=== PATIENT | female | born 1985 | race Caucasian/White ===

== ENCOUNTER 2020-02-15 00:06 | Emergency (ER) | payer BC ==
[~2020-02-15] VITALS: Ht 154.9 cm; Wt 49.8 kg
[2020-02-15] MEDS ORDERED: LACTATED RINGERS 1,000 ML IV ONE ×2 (01:22→03:28)
--- NOTE | 2020-02-15 01:44 | ED Abdominal Pain ---
General Chief Complaint: Abdominal/GI Problems Stated Complaint: FEVER Source of Information: Patient History of Present Illness Date Seen by Provider: Feb 15, 2020 Time Seen by Provider: 01:15 Initial Comments PT ARRIVES VIA POV FROM HOME IN [place] C/O SEVERE SHARP, CONSTANT LOWER ABDOMINAL PAIN X 1 WEEK STATES SHE HAS CROHN'S DISEASE AND ULCERATIVE COLITIS--STATES HER LAST BAD FLARE WAS ALMOST A YEAR AGO. BUT HAS "LITTLE ONES" PERIODICALLY. LAST COLONOSCOPY WAS "EARLIER THIS YEAR" . TAKES 6-MP, AMITIZA AND OMEPRAZOLE. STATES THIS IS EXACTLY THE SAME HER NORMAL C/O NAUSEA, NO VOMITING--ONGOING PROBLEM C/O DIARRHEA X 4-5 TODAY. NO BLACK/BLOODY/TARRY STOOLS. STATES SHE IS NORMALLY VERY CONSTIPATED AND HAS BM EVERY COUPLE OF DAYS HAD TEMP OF 99.9 TODAY NO URINARY SYMPTOMS TOOK 1 GRAM OF TYLENOL SEVERAL HOURS AGO. LMP--02/12/20 TO NOW. NORMAL. NO CONTROL. HAS NOT SOUGHT CARE UNTIL [facility] STATES SHE WORKS AT [employer] AND HAD A NEGATIVE COVID-19 TEST 2 WEEKS AGO- -SOMEONE IN HER AREA TESTED + WAS REASON SHE WAS TESTED. HAS NOT HAD ANY COVID- 19 SYMPTOMS. PCP: DR. YVETTE STACK IN [place] GI: DR. PLAZA IN [place] Allergies and Home Medications Allergies Coded Allergies: No Known Drug Allergies (Unverified , 02/15/20) Review of Systems Review of Systems Constitutional: see HPI, fever Respiratory: No Symptoms Reported; Denies Cough Cardiovascular: No Symptoms Reported Gastrointestinal: See HPI, Abdominal Pain, Diarrhea, Nausea; Denies Rectal Bleeding Genitourinary: No Symptoms Reported Musculoskeletal: no symptoms reported Skin: no symptoms reported Psychiatric/Neurological: No Symptoms Reported Endocrine: No Symptoms Reported Hematologic/Lymphatic: No Symptoms Reported Past [id number] Hx Past Med/Social Hx: Reviewed and Corrections made Patient Social History Alcohol Use: Denies Use Recreational Drug Use: No Smoking Status: Current Everyday Smoker (1-2 PPD) Recent Foreign Travel: No Contact w/Someone Who Travel: No Past Medical History Surgeries: Yes (COLONOSCOPIES; FX/ORIF RIGHT ARM WITH PLATE; WISDOM TEETH REMOVED) Orthopedic Respiratory: No Cardiac: No Neurological: No : No Reproductive Disorders: No Genitourinary: No Gastrointestinal: Yes (CROHN'S DISEASE AND ULCERATIVE COLITIS) Colitis, Crohns Disease, Chronic Constipation Musculoskeletal: Yes (RIGHT ARM FX/ORIF WITH PLATE) Fractures Endocrine: No HEENT: No (WISDOM TEETH REMOVED) Cancer: No Psychosocial: No Integumentary: No Blood Disorders: No Physical Exam Vital Signs Vital Signs - First Documented 02/15/20 01:07 Temp 36.9 Pulse 83 Resp 20 B/P (MAP) 112/60 (77) O2 Delivery Room Air Capillary Refill : Height/Weight/BMI Height: '" Weight: lbs. oz. 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, no motor/sensory deficits, alert, oriented x 3 Skin: normal color, warm/dry, tattoos/piercings (TATTOOS) Progress/Results/Core Measures Results/Orders Lab Results Laboratory Tests Test 02/15/20 01:15 02/15/20 01:30 Range/Units Urine Color YELLOW Urine Clarity CLEAR Urine pH 6.0 5-9 Urine Specific [place] <=1.005 1.016-1.022 Urine Protein NEGATIVE NEGATIVE Urine Glucose (UA) NEGATIVE NEGATIVE Urine Ketones NEGATIVE NEGATIVE Urine Nitrite NEGATIVE NEGATIVE Urine Bilirubin NEGATIVE NEGATIVE Urine Urobilinogen 0.2 < = 1.0 MG/DL Urine Leukocyte Esterase NEGATIVE NEGATIVE Urine RBC (Auto) NEGATIVE NEGATIVE Urine RBC NONE /HPF Urine WBC NONE /HPF Urine Squamous Epithelial Cells 2-5 /HPF Urine Crystals NONE /LPF Urine Bacteria NEGATIVE /HPF Urine Casts NONE /LPF Urine Mucus SMALL H /LPF Urine Culture Indicated NO Urine Opiates Screen NEGATIVE NEGATIVE Urine Oxycodone Screen NEGATIVE NEGATIVE Urine Methadone Screen NEGATIVE NEGATIVE Urine Propoxyphene Screen NEGATIVE NEGATIVE Urine Barbiturates Screen NEGATIVE NEGATIVE Ur Tricyclic Antidepressants Screen NEGATIVE NEGATIVE Urine Phencyclidine Screen NEGATIVE NEGATIVE Urine Amphetamines Screen NEGATIVE NEGATIVE Urine Methamphetamines Screen NEGATIVE NEGATIVE Urine Benzodiazepines Screen NEGATIVE NEGATIVE Urine Cocaine Screen NEGATIVE NEGATIVE Urine Cannabinoids Screen NEGATIVE NEGATIVE White Blood Count 6.4 4.3-11.0 10^3/uL Red Blood Count 4.17 3.80-5.11 10^6/uL Hemoglobin 13.2 11.5-16.0 g/dL Hematocrit 40 35-52 % Mean Corpuscular Volume 97 80-99 fL Mean Corpuscular Hemoglobin 32 25-34 pg Mean Corpuscular Hemoglobin Concent 33 32-36 g/dL Red Cell Distribution Width 14.5 10.0-14.5 % Platelet Count 396 130-400 10^3/uL Mean Platelet Volume 9.6 9.0-12.2 fL Immature Granulocyte % (Auto) 0 % Neutrophils (%) (Auto) 55 42-75 % Lymphocytes (%) (Auto) 36 12-44 % Monocytes (%) (Auto) 5 0-12 % Eosinophils (%) (Auto) 3 0-10 % Basophils (%) (Auto) 0 0-10 % Neutrophils # (Auto) 3.5 1.8-7.8 10^3/uL Lymphocytes # (Auto) 2.3 1.0-4.0 10^3/uL Monocytes # (Auto) 0.3 0.0-1.0 10^3/uL Eosinophils # (Auto) 0.2 0.0-0.3 10^3/uL Basophils # (Auto) 0.0 0.0-0.1 10^3/uL Immature Granulocyte # (Auto) 0.0 0.0-0.1 10^3/uL Erythrocyte Sedimentation Rate 4 0-20 MM/HR Sodium Level 139 135-145 MMOL/L Potassium Level 3.6 3.6-5.0 MMOL/L Chloride Level 104 98-107 MMOL/L Carbon Dioxide Level 22 21-32 MMOL/L Anion Gap 13 5-14 MMOL/L Blood Urea Nitrogen 9 7-18 MG/DL Creatinine 0.74 0.60-1.30 MG/DL Estimat Glomerular Filtration Rate > 60 BUN/Creatinine Ratio 12 Glucose Level 94 70-105 MG/DL Calcium Level 9.5 8.5-10.1 MG/DL Corrected Calcium 8.5-10.1 MG/DL Magnesium Level 2.3 1.6-2.4 MG/DL Total Bilirubin 0.3 0.1-1.0 MG/DL Aspartate Amino Transf (AST/SGOT) 12 5-34 U/L Alanine Aminotransferase (ALT/SGPT) 21 0-55 U/L Alkaline Phosphatase 44 40-136 U/L C-Reactive Protein High Sensitivity 0.02 0.00-0.50 MG/DL Total Protein 8.2 6.4-8.2 GM/DL Albumin 5.0 H 3.2-4.5 GM/DL Amylase Level 49 25-125 U/L Lipase 29 8-78 U/L My Orders Orders - ROLO WALLS DO Ed Iv/Invasive Line Start (02/15/20 01:17) Urine Bedside (02/15/20:17) Amylase (02/15/20:17) Cbc With Automated Diff (02/15/20:) Comprehensive Metabolic Panel (02/15/20:) Hs C Reactive Protein (02/15/20:17) Lipase (02/15/20:17) Magnesium (02/15/20:17) Ua Culture If Indicated (02/15/20:) Erythrocyte Sedimentation Rate (02/15/20:17) Ed Iv/Invasive Line Start (02/15/20 01:22) Lactated Ringers (Lr 1000 Ml Iv Solution (02/15/20 01:22) Drug Screen Stat (Urine) (02/15/20 01:22) Ct Abdomen/Pelvis W (02/15/20 03:26) Abdomen, Flat & Upright/Decub (02/15/20 03:26) Ketorolac Injection (Toradol Injection) (02/15/20 03:30) Ed Iv/Invasive Line Start (02/15/20 03:28) Lactated Ringers (Lr 1000 Ml Iv Solution (02/15/20 03:28) Medications Given in ED Current Medications Medications Dose Ordered Sig/Tremaine Route Start Time Stop Time Status Last Admin Dose Admin Ketorolac Tromethamine 30 mg ONCE ONCE IVP 02/15/20 03:30 02/15/20 03:31 DC 02/15/20 03:35 30 MG Lactated Ringer's 1,000 ml @ 0 mls/hr Q0M ONCE IV 02/15/20 01:22 02/15/20 01:23 DC 02/15/20 01:34 999 MLS/HR Lactated Ringer's 1,000 ml @ 0 mls/hr Q0M ONCE IV 02/15/20 03:28 02/15/20 03:29 DC 02/15/20 03:35 999 MLS/HR Vital Signs/I&O 02/15/20 01:07 Temp 36.9 Pulse 83 Resp 20 B/P (MAP) 112/60 (77) O2 Delivery Room Air Departure Impression Primary Impression: Pelvic pain Additional Impression: PELVIC VASCULAR CONGESTION Disposition: HOME, SELF-CARE Condition: Improved Departure-Patient Inst. Patient Instructions: Acute Pelvic Pain (DC) Add. Discharge Instructions: HEATING PAD TO ABDOMEN AT 20 MINUTE INTERVALS, NEEDED FOR PAIN FOLLOW UP WITH YOUR BOTTOM SANDER IN [place] NEXT WEEK FOR FURTHER CARE All discharge instructions reviewed with patient and/or family. Voiced understanding. Scripts Ketorolac Tromethamine (Ketorolac Tromethamine) 10 Mg Tablet 10 MG PO Q6H for Pain, #15 TAB Prov: ROLO WALLS DO 02/15/20 ROLO WALLS DO Feb 15, 2020 01:44
[2020-02-15 01:45] LABS: BILIRUBIN,URINE NEGATIVE (NEGATIVE); CLARITY,URINE CLEAR; COLOR,URINE YELLOW; GLUCOSE, URINE (UA) NEGATIVE (NEGATIVE); KETONES,URINE NEGATIVE (NEGATIVE); LEUKOCYTE ESTERASE ,URINE NEGATIVE (NEGATIVE); NITRITE,URINE NEGATIVE (NEGATIVE); PROTEIN,URINE NEGATIVE (NEGATIVE)
[2020-02-15 02:01] LABS: BASOPHILS % (AUTO) 0 % (0-10); EOSINOPHILS # (AUTO) 0.2 10^3/uL (0.0-0.3); EOSINOPHILS % (AUTO) 3 % (0-10); HEMATOCRIT 40 % (35-52); HEMOGLOBIN 13.2 g/dL (11.5-16.0); LYMPHOCYTES # (AUTO) 2.3 10^3/uL (1.0-4.0); LYMPHOCYTES % (AUTO) 36 % (12-44); MEAN CORPUSCULAR HEMOGLOBIN 32 pg (25-34); MEAN CORPUSCULAR HGB CONC 33 g/dL (32-36); MEAN CORPUSCULAR VOLUME 97 fL (80-99); MEAN PLATELET VOLUME 9.6 fL (9.0-12.2); MONOCYTES # (AUTO) 0.3 10^3/uL (0.0-1.0); MONOCYTES % (AUTO) 5 % (0-12); NEUTROPHILS # (AUTO) 3.5 10^3/uL (1.8-7.8); NEUTROPHILS % (AUTO) 55 % (42-75); PLATELET COUNT 396 10^3/uL (130-400); WHITE BLOOD COUNT 6.4 10^3/uL (4.3-11.0)
[2020-02-15 02:04] LABS: BACTERIA,URINE NEGATIVE /HPF
[2020-02-15 02:08] LABS: CHLORIDE 104 MMOL/L (98-107); POTASSIUM 3.6 MMOL/L (3.6-5.0); SODIUM 139 MMOL/L (135-145)
[2020-02-15 02:10] LABS: AMYLASE 49 U/L (25-125); CALCIUM 9.5 MG/DL (8.5-10.1)
[2020-02-15 02:11] LABS: GLUCOSE 94 MG/DL (70-105); TOTAL PROTEIN 8.2 GM/DL (6.4-8.2)
[2020-02-15 02:12] LABS: CARBON DIOXIDE 22 MMOL/L (21-32)
[2020-02-15 02:13] LABS: BILIRUBIN,TOTAL 0.3 MG/DL (0.1-1.0)
[2020-02-15 02:14] LABS: ALKALINE PHOSPHATASE 44 U/L (40-136); CREATININE SERUM 0.74 MG/DL (0.60-1.30); GFR ESTIMATED > 60
[2020-02-15 02:15] LABS: BUN/CREATININE RATIO 12
[2020-02-15 02:17] LABS: ALANINE AMINOTRANSFERASE 21 U/L (0-55); MAGNESIUM 2.3 MG/DL (1.6-2.4)
[2020-02-15 02:18] LABS: LIPASE 29 U/L (8-78)
[2020-02-15 02:29] LABS: AMPHETAMINE SCREEN, URINE NEGATIVE (NEGATIVE); BARBITURATE SCREEN URINE NEGATIVE (NEGATIVE); BENZODIAZEPINES SCREEN URINE NEGATIVE (NEGATIVE); CANNABINOID SCREEN, URINE NEGATIVE (NEGATIVE); COCAINE SCREEN URINE NEGATIVE (NEGATIVE); METHADONE STAT NEGATIVE (NEGATIVE); METHAMPHETAMINE SCREEN URINE S NEGATIVE (NEGATIVE); OPIATE SCREEN URINE NEGATIVE (NEGATIVE); OXYCODONE STAT NEGATIVE (NEGATIVE); PROPOXYPHENE STAT NEGATIVE (NEGATIVE); TRICYCLIC ANTIDEPRESSANTS SCRE NEGATIVE (NEGATIVE)
[2020-02-15 02:29] LABS: ERYTHROCYTE SEDIMENTATION RATE 4 MM/HR (0-20)
[2020-02-15] MEDS ORDERED: KETOROLAC 30 MG/ML VIAL IVP ONE (03:30)
[2020-02-15] MEDS ORDERED: KETO10TA PO (05:05)
[2020-02-15 05:13] VITALS: BP 110/62
--- NOTE | 2020-02-15 05:59 | Diagnostic Imaging Report ---
INDICATION: Abdominal pain. TECHNIQUE: Supine and upright view of the abdomen 3:52 AM CORRELATION STUDY: None FINDINGS: Lung bases clear. Imaging of the abdomen demonstrates the bowel gas pattern to be unremarkable and without evidence for obstruction. A few air-fluid levels are present. No evidence for free air. No pathologic intraabdominal calcifications. Probable tampon shadow present. Mild leftward curvature lower lumbar spine. IMPRESSION: 1. Few air-fluid levels may reflect mild ileus pattern. No findings to suggest high degree bowel obstruction. Dictated by: Dictated on workstation # [id number]
--- NOTE | 2020-02-15 06:10 | Diagnostic Imaging Report ---
PROCEDURE: CT abdomen and pelvis with contrast. TECHNIQUE: Multiple contiguous axial images were obtained through the abdomen and pelvis after administration of intravenous contrast. Auto Exposure Controls were utilized during the CT exam to meet ALARA standards for radiation dose reduction. All CT scans use one or more of the following dose optimizing techniques: automated exposure control, MA and/or KvP adjustment based on patient size and exam type or iterative reconstruction. INDICATION: Abdominal pain and fever. CORRELATION STUDY: None. FINDINGS: LOWER THORAX: Clear. Partially visualized bilateral breast implants. LIVER: Mildly elongated right lobe compatible with Reidel configuration. GALLBLADDER: Contracted. No definitive calcification or ductal dilatation. SPLEEN: Unremarkable. PANCREAS: Unremarkable. ADRENAL GLANDS: Unremarkable. KIDNEYS: Normal configuration. No calcification or obstruction. ABDOMINAL AORTA: Unremarkable, nonaneurysmal. GASTROINTESTINAL TRACT: Portions of what appear to be the appendix in the right lower quadrant unremarkable but is limited in evaluation. No evidence of overt obstruction. No significant abdominal ascites and/or free air. URINARY BLADDER: Unremarkable. REPRODUCTIVE: Prominent bilateral ovarian veins are present with significant reflux of contrast. Right gonadal vein measuring approximately 10 mm. Left gonadal vein slightly more prominent at 13 mm. Prominent periuterine varicosities. Tampon is present within the vagina. OSSEOUS STRUCTURES: 02 OTHER: None. IMPRESSION: 1. Negative for acute abnormality of the abdomen or pelvis. 2. Prominent ovarian pelvic veins with significant reflux of contrast into the gonadal veins, may reflect underlying pelvic congestion syndrome. Initial report was provided by Cassius. Dictated by: Dictated on workstation # [id number]
== END 2020-02-15 05:13 | disposition home or self-care (01) ==
LOC: ER 00:10
DX: R10.2 Pelvic and perineal pain (principal); N94.89 Other specified conditions associated with female genital organs and menstrual cycle; F17.200 Nicotine dependence, unspecified, uncomplicated
CPT/HCPCS: 36415; 74019; 74177; 80053; 80306; 81000; 82150; 83690; 83735; 84703; 85025; 85652; 86141